=== PATIENT | male | born 1990 | race Caucasian/White ===

== ENCOUNTER 2017-12-02 17:29 | Emergency (ER) | payer SELFPAY ==
[2017-12-02 17:37] VITALS: BP 149/77; PULSE 68; RESP 18; TEMP 36.8; O2SAT 98; BMI 22.8
--- NOTE | 2017-12-02 18:07 | XR_ITS ---
XR chest 2V HISTORY: ITS.REASON: COUGH, SOA ORDERING PHYSICIAN: Joseph Barillas MD PATIENT AGE: 27 years COMPARISON: 09/04/2014 FINDINGS: Unremarkable cardiovascular structures. There is hyperinflation with perihilar bronchial thickening and mild coarsening of the bronchovascular markings consistent with bronchitis/bronchiolitis. No lobar consolidation or collapse. There is mild kyphosis of the thoracic spine unchanged. IMPRESSION: Bronchitis/bronchiolitis
--- NOTE | 2017-12-02 18:10 | HMH.EDGENADL ---
ED Disposition Clinical Impression: Influenza A, Acute bronchitis, Acute sinusitis Disposition: Home, Self-Care Condition on Discharge: Good Instructions: Sinusitis, DI for Influenza -- Adult, DI for Fever (Symptom) -- Adult, DI for Sinusitis, DI for Acute Bronchitis Additional Instructions: Off work until 12/09/17 Additional instructions for UPPER RESPIRATORY INFECTION: See your physician if not improved by Thursday. Return immediately if you have an uncontrollable fever greater than 104 degrees, difficulty breathing or shortness of breath, persistent vomiting, or inability to swallow. Prescriptions: Azithromycin [Z-Marlo 250mg Tab] 250 mg PO UD DOSE PK #6 tab Benzonatate [Tessalon Perle 100mg Cap] 100 mg PO TIDP PRN #20 cap PRN Reason: Cough Ondansetron [Zofran 4mg ODT] 4 mg PO TIDP PRN #10 tab.rapdis PRN Reason: Nausea And Vomiting Oseltamivir Phosphate [Tamiflu 75mg Capsule] 75 mg PO BID #10 capsule Referrals: Castro Breen MD [Primary Care Provider] - - Critical Care Critical Care Time: No Attestation: On 12/02/17, the high probability of a clinically significant, sudden or life threatening deterioration of the following system(s) required my full and direct attention, intervention and personal management. The time I documented below is in addition to time spent performing reported procedures but includes the following listed in this critical care notation. Medical Decision Making - Medical Records Medical records reviewed: Yes: I reviewed the patient's medical records. Vital Signs: 12/02/17 17:37 Temperature 98.2 F Temperature Source Oral Pulse Rate [Right Radial] 68 Respiratory Rate 18 Blood Pressure [Right Arm] 149/77 Blood Pressure Mean [Right Arm] 101 Blood Pressure Source [Right Arm] Automatic Cuff Blood Pressure Position [Right Arm] Sitting 02 Sat by Pulse Oximetry 98 Oxygen Delivery Method Room Air - Lab Data Lab Results 12/02/17 17:40: Influenza Type A Ag Positive A, Influenza Type B Ag Negative Orders (Tests/Meds): ORDERS Category Date Time Status Chest XR 2 view (NOT portable) [XR chest 2V] Stat Exams 12/02/17 18:07 Taken - Ace Inquiry Pt receiving controlled substance: No General Adult HPI - General Chief complaint: Weakness Stated complaint: SOA Mode of Arrival: Ambulatory Limitations: No Limitations Description of Symptoms (Recalled from ER Triage Doc. by RN): soa,weak, cough, congestion, nausea - History of Present Illness HPI narrative: The patient has been sick for 3 weeks. He started out with sinus symptoms with rhinorrhea, sinus pain, productive cough. However, today, he got much worse, suddenly developing feverish and chilled feeling, headache, body aches, nausea. - Related Data Previous Rx's Medication Instructions Recorded Azithromycin [Z-Marlo 250mg Tab] 250 mg PO UD DOSE PK #6 tab 12/02/17 Benzonatate [Tessalon Perle 100mg 100 mg PO TIDP PRN #20 cap 12/02/17 Cap] Ondansetron [Zofran 4mg ODT] 4 mg PO TIDP PRN #10 tab.rapdis 12/02/17 Oseltamivir Phosphate [Tamiflu 75 mg PO BID #10 cap 12/02/17 75mg Capsule] Allergies Allergy/AdvReac Type Severity Reaction Status Date / Time sulfamethoxazole Allergy Unknown Unverified 11/17/17 14:50 [From BACTRIM] trimethoprim [From BACTRIM] Allergy Unknown Unverified 11/17/17 14:50 [facility] History I have reviewed the patient's past medical history: Yes Medical History: Reports:: MRSA Denies:: Cancer, Diabetes Mellitus Type 1, Diabetes Mellitus Type 2 Laterality Cases: Bilateral: Arthroscopy Shoulder Other Surgeries: No: Pacemaker Amputation: No Fractures: No - *Social History Educational Level: Completed High School Smoking Status: Current every day smoker Tobacco Type: cigarettes # Packs/Day (cigarettes): 1 Alcohol Intake: never - Psychiatric History Expresses thoughts of harming self/others: None Suicide Plan Description: No Plan ROS Obtain
== END 2017-12-02 19:45 | disposition home or self-care (01) ==
PROVIDERS: Emergency Provider Emergency Medicine; Family Provider Family Medicine; PCP Family Medicine
DX: J10.1 Influenza due to other identified influenza virus with other respiratory manifestations (principal); J20.9 Acute bronchitis, unspecified; J01.00 Acute maxillary sinusitis, unspecified; Z88.2 Allergy status to sulfonamides; F17.210 Nicotine dependence, cigarettes, uncomplicated
CPT/HCPCS: 71046; 87275; 87276; 99283

== ENCOUNTER 2018-01-24 12:56 | Emergency (ER) | payer MEDICAID, SELFPAY ==
[2018-01-24 13:07] VITALS: BP 108/69; PULSE 111; RESP 20; TEMP 37.1; O2SAT 100; BMI 22.0
--- NOTE | 2018-01-24 13:15 | HMH.EDUTC ---
[facility] [place] Clinical Impression: Periorbital cellulitis of right eye Disposition: Home, Self-Care Condition on Discharge: Good Additional Instructions: RTC if not improving Prescriptions: cephALEXin [Keflex 500mg Cap] 500 mg PO QID 10 Days #40 cap Referrals: Charles Ruffin MD [Primary Care Provider] - Time of Disposition: 13:19 Medical Decision Making - Medical Records Medical records reviewed: Yes: I reviewed the patient's medical records. Vital Signs: 01/24/18 13:07 Temperature 98.8 F Temperature Source Temporal Artery Scan Pulse Rate [Right Brachial] 111 H Respiratory Rate 20 Blood Pressure [Right Arm] 108/69 Blood Pressure Mean [Right Arm] 82 Blood Pressure Source [Right Arm] Automatic Cuff Blood Pressure Position [Right Arm] Sitting 02 Sat by Pulse Oximetry 100 Oxygen Delivery Method Room Air Orders (Tests/Meds): ED MEDICATIONS Discontinued Medications Generic Name Dose Route Start Last Admin Trade Name Freq PRN Reason Stop Dose Admin Ceftriaxone Sodium 1 gm 01/24/18 13:11 Rocephin 1gm Vial IM 01/24/18 13:12 ONCE ONE Lidocaine HCl 0 ml 01/24/18 13:11 Lidocaine 1% 10ml Mdv IM 01/24/18 13:12 ONCE ONE - Ace Inquiry Pt receiving controlled substance: No [facility] [place] - General Stated complaint: r side of face swollen Time Seen by Provider: 01/24/18 13:00 Mode of Arrival: Ambulatory Source of Information: Patient Limitations: No Limitations Description of Symptoms (Recalled from Triage Doc. by RN): ABCESSED TOOTH AND RT SIDE FACIAL SWELLING HEENT Symptoms (Recalled from RN notes): Yes (ABCESSED TOOTH AND RT SIDE FACIAL SWELLING) Resp Symptoms (Recalled from RN notes): No Skin Symptoms (Recalled from RN notes): No MS Symptoms (Recalled from RN notes): No Functional Status (Recalled from RN notes): N/A - History of Present Illness Provider Complaint: Swelling of right side of face X 2 days. No pain. No known injury. No dental issues. No fever. Onset (ago): day(s) (2) Location: face Exacerbating factors: cold therapy Associated symptoms: denies other symptoms Treatments prior to arrival: heat therapy - Related Data Previous Rx's Medication Instructions Recorded Azithromycin [Z-Marlo 250mg Tab] 250 mg PO UD DOSE PK #6 tab 12/02/17 Benzonatate [Tessalon Perle 100mg 100 mg PO TIDP PRN #20 cap 12/02/17 Cap] Ondansetron [Zofran 4mg ODT] 4 mg PO TIDP PRN #10 tab.rapdis 12/02/17 Oseltamivir Phosphate [Tamiflu 75 mg PO BID #10 cap 12/02/17 75mg Capsule] cephALEXin [Keflex 500mg Cap] 500 mg PO QID 10 Days #40 cap 01/24/18 Allergies Allergy/AdvReac Type Severity Reaction Status Date / Time sulfamethoxazole Allergy Unknown Verified 01/24/18 13:11 [From BACTRIM] trimethoprim [From BACTRIM] Allergy Unknown Verified 01/24/18 13:11 - Worker's Comp Is this a Worker's Comp case?: No [facility] History I have reviewed the patient's past medical history: Yes Medical History: Denies:: Cancer, Diabetes Mellitus Type 1, Diabetes Mellitus Type 2, Internal Pacemaker, MRSA Laterality Cases: Bilateral: Arthroscopy Shoulder Other Surgeries: No: Pacemaker Amputation: No Fractures: No - Social History Smoking Status: Current every day smoker Tobacco Type: cigarettes # Packs/Day (cigarettes): 1 Alcohol Intake: never - Psychiatric History Expresses thoughts of harming self/others: None Suicide Plan Description: No Plan ROS Obtained: Yes All systems reviewed & no additional complaints - ENT Ears, Nose, Mouth, and Throat: Reports facial pain Physical Exam - General General appearance: alert, in no apparent distress - Head Head exam: atraumatic, normocephalic, normal inspection - Eye Eye exam: Present: normal appearance, PERRL, EOMI - ENT ENT exam: Present: normal exam, normal oropharynx, mucous membranes moist, TM's normal bilaterally, normal external ear exam - Expanded ENT Exam Nose exam: Present: sinus tend
--- NOTE | 2018-01-24 13:19 | ED_ITS ---
[facility] [place]position Clinical Impression: Periorbital cellulitis of right eye Disposition: Home, Self-Care Condition on Discharge: Good Additional Instructions: RTC if not improving Prescriptions: cephALEXin [Keflex 500mg Cap] 500 mg PO QID 10 Days #40 cap Referrals: Charles Ruffin MD [Primary Care Provider] - Time of Disposition: 13:19 Medical Decision Making - Medical Records Medical records reviewed: Yes: I reviewed the patient's medical records. Vital Signs: 01/24/18 13:07 Temperature 98.8 F Temperature Source Temporal Artery Scan Pulse Rate [Right Brachial] 111 H Respiratory Rate 20 Blood Pressure [Right Arm] 108/69 Blood Pressure Mean [Right Arm] 82 Blood Pressure Source [Right Arm] Automatic Cuff Blood Pressure Position [Right Arm] Sitting 02 Sat by Pulse Oximetry 100 Oxygen Delivery Method Room Air Orders (Tests/Meds): ED MEDICATIONS Discontinued Medications Generic Name Dose Route Start Last Admin Trade Name Freq PRN Reason Stop Dose Admin Ceftriaxone Sodium 1 gm 01/24/18 13:11 Rocephin 1gm Vial IM 01/24/18 13:12 ONCE ONE Lidocaine HCl 0 ml 01/24/18 13:11 Lidocaine 1% 10ml Mdv IM 01/24/18 13:12 ONCE ONE - Ace Inquiry Pt receiving controlled substance: No [facility] [place] HPI - General Stated complaint: r side of face swollen Time Seen by Provider: 01/24/18 13:00 Mode of Arrival: Ambulatory Source of Information: Patient Limitations: No Limitations Description of Symptoms (Recalled from Triage Doc. by RN): ABCESSED TOOTH AND RT SIDE FACIAL SWELLING HEENT Symptoms (Recalled from RN notes): Yes (ABCESSED TOOTH AND RT SIDE FACIAL SWELLING) Resp Symptoms (Recalled from RN notes): No Skin Symptoms (Recalled from RN notes): No MS Symptoms (Recalled from RN notes): No Functional Status (Recalled from RN notes): N/A - History of Present Illness Provider Complaint: Swelling of right side of face X 2 days. No pain. No known injury. No dental issues. No fever. Onset (ago): day(s) (2) Location: face Exacerbating factors: cold therapy Associated symptoms: denies other symptoms Treatments prior to arrival: heat therapy - Related Data Previous Rx's Medication Instructions Recorded Azithromycin [Z-Marlo 250mg Tab] 250 mg PO UD DOSE PK #6 tab 12/02/17 Benzonatate [Tessalon Perle 100mg 100 mg PO TIDP PRN #20 cap 12/02/17 Cap] Ondansetron [Zofran 4mg ODT] 4 mg PO TIDP PRN #10 tab.rapdis 12/02/17 Oseltamivir Phosphate [Tamiflu 75 mg PO BID #10 cap 12/02/17 75mg Capsule] cephALEXin [Keflex 500mg Cap] 500 mg PO QID 10 Days #40 cap 01/24/18 Allergies Allergy/AdvReac Type Severity Reaction Status Date / Time sulfamethoxazole Allergy Unknown Verified 01/24/18 13:11 [From BACTRIM] trimethoprim [From BACTRIM] Allergy Unknown Verified 01/24/18 13:11 - Worker's Comp Is this a Worker's Comp case?: No [facility] History I have reviewed the patient's past medical history: Yes Medical History: Denies:: Cancer, Diabetes Mellitus Type 1, Diabetes Mellitus Type 2, Internal Pacemaker, MRSA Laterality Cases: Bilateral: Arthroscopy Shoulder Other Surgeries: No: Pacemaker Amputation: No Fractures: No - Social Histor
[2018-01-24 13:35] VITALS: BP 108/69; PULSE 111; RESP 20; TEMP 37.1; O2SAT 100
== END 2018-01-24 13:36 | disposition home or self-care (01) ==
PROVIDERS: Emergency Provider Physician Assistant; Family Provider Family Medicine; PCP Internal Medicine Adolescent Medicine
DX: L03.213 Periorbital cellulitis (principal); F17.210 Nicotine dependence, cigarettes, uncomplicated; Z88.2 Allergy status to sulfonamides
CPT/HCPCS: 96372; 99202

== ENCOUNTER 2018-02-01 22:22 | Emergency (ER) | payer MEDICAID, SELFPAY ==
[2018-02-01 22:23] VITALS: BP 141/78; PULSE 80; RESP 18; TEMP 37.1; O2SAT 98; BMI 22.8
--- NOTE | 2018-02-01 22:39 | XR_ITS ---
XR chest 2V HISTORY: Chest pain, smoker ITS.REASON: CP ORDERING PHYSICIAN: Calos Ventura MD PATIENT AGE: 28 years COMPARISON: 12/02/2017 FINDINGS: The cardiomediastinal silhouette and pulmonary vascularity are within normal limits. There remains bronchial thickening with coarsening of the perihilar bronchovascular markings as before. No lobar consolidation or collapse.. No acute bony abnormalities. IMPRESSION: Persistent bronchial thickening with hyperinflation and prominence of perihilar markings. These findings may be seen with bronchitis/smoking related lung disease
--- NOTE | 2018-02-01 22:39 | CT_ITS ---
CT head/brain wo con HISTORY: Syncope, headache, pain, following injury of the head ITS.REASON: HEAD INJURY ORDERING PHYSICIAN: Calos Ventura MD PATIENT AGE: 28 years COMPARISON: None TECHNIQUE: Axial images obtained without contrast. Brain and bone windows reviewed. FINDINGS: No midline shift, mass effect, intracranial hemorrhage, hydrocephalus, or extra-axial fluid collection is evident. The calvarium has an unremarkable appearance. No mastoid effusion. No sinus air-fluid levels.. IMPRESSION: Negative CT head without contrast. No acute finding.
[2018-02-01 22:54] LABS: Microscopic, Urine URINE MICROSCOPIC (MICROSCOPIC)
[2018-02-01 22:57] LABS: Appearance,Urine CLEAR (Clear); Bilirubin,Urine Negative (Negative); Blood, Urine Negative (Negative); Color,Urine YELLOW (Yellow); Glucose,Urine (UA) Negative (Negative); Ketones,Urine TRACE (Negative); Leukocyte Esterase,Urine Negative (Negative); Nitrate,Urine Negative (Negative); PH,Urine 6.5 (5.0-8.5); Protein,Urine Negative (Negative); Specific Gravity, Urine 1.025 (1.005-1.030); Urobilinogen,Urine 0.2 EU/dl (0.2)
[2018-02-01 22:58] LABS: Basophils % 0.8 % (0.1-2.0); Eosinophils # 0.1 K/mm3 (0.0-0.4); Eosinophils % 2.8 % (0.1-12.0); Hematocrit 42.1 % (42.0-52.0); Hemoglobin 14.2 g/dL (14.1-18.0); Lymphocytes # 1.8 K/mm3 (0.7-4.5); Lymphocytes % 37.5 K/mm3 (10-50); Mean Corpuscular HGB Conc 33.7 g/dL (31.8-35.4); Mean Corpuscular Hemoglobin 31.6 pg (27.0-31.2); Mean Corpuscular Volume 93.7 fl (80-94); Mean Platelet Volume 7.8 fl (7.4-10.4); Monocytes # 0.5 K/mm3 (0.1-1.0); Monocytes % 11.4 % (1.7-9.3); Neutrophils # 2.2 K/mm3 (1.8-7.8); Neutrophils % 47.5 % (37.0-80.0); Platelet Count 266 K/mm3 (142-424); Red Blood Count 4.49 M/mm3 (4.60-6.20); Red Cell Distribution Width 12.4 % (11.5-17.5); White Blood Count 4.7 K/mm3 (4.8-10.8)
--- NOTE | 2018-02-01 23:31 | HMH.EDCP ---
ED Disposition Clinical Impression: Atypical chest pain, Vasovagal syncope Acute bronchitis Qualifiers: Bronchitis organism: unspecified organism Qualified Code(s): J20.9 - Acute bronchitis, unspecified Disposition: Home, Self-Care Condition on Discharge: Good Instructions: DI for Cough -- Adult Additional Instructions: fluids and see pcp for follow up Prescriptions: Azithromycin [Zithromax 250mg tab] 250 mg PO DIRECTED #6 tab Referrals: Charles Ruffin MD [Primary Care Provider] - - Critical Care Critical Care Time: No Attestation: On 02/01/18, the high probability of a clinically significant, sudden or life threatening deterioration of the following system(s) required my full and direct attention, intervention and personal management. The time I documented below is in addition to time spent performing reported procedures but includes the following listed in this critical care notation. Medical Decision Making - Medical Records Medical records reviewed: Yes: I reviewed the patient's medical records. Vital Signs: 02/01/18 22:23 02/02/18 00:34 Temperature 98.7 F Temperature Source Oral Pulse Rate [Right Brachial] 80 72 Respiratory Rate 18 22 Blood Pressure [Right Arm] 141/78 Blood Pressure Mean [Right Arm] 99 02 Sat by Pulse Oximetry 98 99 Oxygen Delivery Method Room Air Room Air - Lab Data Lab results reviewed: Yes: I reviewed the patient's lab results. Lab Results 02/01/18 22:42: Urine Opiates Screen Negative, Ur Barbituates Screen Negative, Ur Phencyclidine Scrn Negative, Ur Amphetamines Screen Negative, U Methamphetamines Scrn Negative, U Benzodiazepines Scrn Negative, Urine Cocaine Screen Negative, U Marijuana (THC) Screen Negative 02/01/18 22:52: Urine Color Yellow, Urine Appearance Clear, Urine pH 6.5, Ur Specific [place] 1.025, Urine Protein Negative, Urine Glucose (UA) Negative, Urine Ketones Trace, Urine Blood Negative, Urine Nitrate Negative, Urine Bilirubin Negative, Urine Urobilinogen 0.2, Ur Leukocyte Esterase Negative, Urine RBC 5-10, Urine WBC Occasional, Urine Bacteria 1+, Urine Mucus 2+ 02/01/18 22:52: WBC 4.7 L, RBC 4.49 L, Hgb 14.2, Hct 42.1, MCV 93.7, MCH 31.6 H, MCHC 33.7, RDW 12.4, Plt Count 266, MPV 7.8, Neut % (Auto) 47.5, Lymph % (Auto) 37.5, [place] % (Auto) 11.4 H, Eos % (Auto) 2.8, Baso % (Auto) 0.8, Neut # (Auto) 2.2, Lymph # (Auto) 1.8, [place] # (Auto) 0.5, Eos # (Auto) 0.1, Baso # (Auto) 0.0 02/01/18 22:52: Sodium 135 L, Potassium 3.5, Chloride 102, Carbon Dioxide 25, Anion Gap 11.5, BUN 12, Creatinine 1.00, Estimated Creat Clear 110, Estimated GFR 90, Est GFR ( Amer) 108, Glucose 82, Calcium 8.8, Total Bilirubin 0.4, AST 16, ALT 20, Alkaline Phosphatase 87, Total Creatine Kinase 294, CK-MB (CK-2) 0.6, CK-MB (CK-2) Rel Index 0.2, Troponin I < 0.02, Total Protein 7.7, Albumin 4.2, Globulin 3.5 H, Albumin/Globulin Ratio 1.2, Plasma/Serum Alcohol 0 Result diagrams: 02/01/18 22:52 02/01/18 22:52 Orders (Tests/Meds): ED MEDICATIONS Discontinued Medications Generic Name Dose Route Start Last Admin Trade Name Freq PRN Reason Stop Dose Admin Sodium Chloride 1,000 mls @ 999 mls/hr 02/01/18 23:45 02/01/18 23:43 Sod Chlor 0.9% 1000ml Bag IV 02/02/18 00:45 999 mls/hr .Q1H1M TIFFANY Administration ORDERS Category Date Time Status CT head/brain wo con Stat Cat Scan 02/01/18 22:39 Taken XR chest 2V Stat Exams 02/01/18 22:39 Taken 12-lead EKG Request [ECG Request by /Dante] Stat Y 02/01/18 22:41 Ordered - Radiology Data #1 Image(s): Chest Image Reviewed: Yes I reviewed the patient's radiology image Preliminary Findings: Normal/NAD - CT Data CT Scan: Head Time Received: 00:[address] Reviewed: Yes: I have viewed the radiologist's interpretation Preliminary Findings: Normal/NAD - ECG Data Tracing #1 I reviewed this ECG and interpreted as documented below: Normal Sinus Rhythm: Yes Ischemic changes: non-specific ST-T wa
--- NOTE | 2018-02-01 23:34 | ED_ITS ---
ED Disposition Clinical Impression: Atypical chest pain, Vasovagal syncope Acute bronchitis Qualifiers: Bronchitis organism: unspecified organism Qualified Code(s): J20.9 - Acute bronchitis, unspecified Disposition: Home, Self-Care Condition on Discharge: Good Instructions: DI for Cough -- Adult Additional Instructions: fluids and see pcp for follow up Prescriptions: Azithromycin [Zithromax 250mg tab] 250 mg PO DIRECTED #6 tab Referrals: Charles Ruffin MD [Primary Care Provider] - - Critical Care Critical Care Time: No Attestation: On 02/01/18, the high probability of a clinically significant, sudden or life threatening deterioration of the following system(s) required my full and direct attention, intervention and personal management. The time I documented below is in addition to time spent performing reported procedures but includes the following listed in this critical care notation. Medical Decision Making - Medical Records Medical records reviewed: Yes: I reviewed the patient's medical records. Vital Signs: 02/01/18 22:23 02/02/18 00:34 Temperature 98.7 F Temperature Source Oral Pulse Rate [Right Brachial] 80 72 Respiratory Rate 18 22 Blood Pressure [Right Arm] 141/78 Blood Pressure Mean [Right Arm] 99 02 Sat by Pulse Oximetry 98 99 Oxygen Delivery Method Room Air Room Air - Lab Data Lab results reviewed: Yes: I reviewed the patient's lab results. Lab Results 02/01/18 22:42: Urine Opiates Screen Negative, Ur Barbituates Screen Negative, Ur Phencyclidine Scrn Negative, Ur Amphetamines Screen Negative, U Methamphetamines Scrn Negative, U Benzodiazepines Scrn Negative, Urine Cocaine Screen Negative, U Marijuana (THC) Screen Negative 02/01/18 22:52: Urine Color Yellow, Urine Appearance Clear, Urine pH 6.5, Ur Specific [place] 1.025, Urine Protein Negative, Urine Glucose (UA) Negative, Urine Ketones Trace, Urine Blood Negative, Urine Nitrate Negative, Urine Bilirubin Negative, Urine Urobilinogen 0.2, Ur Leukocyte Esterase Negative, Urine RBC 5-10, Urine WBC Occasional, Urine Bacteria 1+, Urine Mucus 2+ 02/01/18 22:52: WBC 4.7 L, RBC 4.49 L, Hgb 14.2, Hct 42.1, MCV 93.7, MCH 31.6 H , MCHC 33.7, RDW 12.4, Plt Count 266, MPV 7.8, Neut % (Auto) 47.5, Lymph % (Auto ) 37.5, [place] % (Auto) 11.4 H, Eos % (Auto) 2.8, Baso % (Auto) 0.8, Neut # (Auto ) 2.2, Lymph # (Auto) 1.8, [place] # (Auto) 0.5, Eos # (Auto) 0.1, Baso # (Auto) 0.0 02/01/18 22:52: Sodium 135 L, Potassium 3.5, Chloride 102, Carbon Dioxide 25, Anion Gap 11.5, BUN 12, Creatinine 1.00, Estimated Creat Clear 110, Estimated GFR 90, Est GFR ( Amer) 108, Glucose 82, Calcium 8.8, Total Bilirubin 0.4 , AST 16, ALT 20, Alkaline Phosphatase 87, Total Creatine Kinase 294, CK-MB (CK- 2) 0.6, CK-MB (CK-2) Rel Index 0.2, Troponin I < 0.02, Total Protein 7.7, Albumin 4.2, Globulin 3.5 H, Albumin/Globulin Ratio 1.2, Plasma/Serum Alcohol 0 Result diagrams: 02/01/18 22:52 02/01/18 22:52 Orders (Tests/Meds): ED MEDICATIONS Discontinued Medications Generic Name Dose Route Start Last Admin Trade Name Freq PRN Reason Stop Dose Admin Sodium Chloride 1,000 mls @ 999 mls/hr 02/01/18 23:45 02/01/18 23:43 Sod Chlor 0.9% 1000ml Bag IV 02/02/18 00:45 999 mls/hr .Q1H1M TIFFANY Administration ORDERS Category Date Time Status CT head/brain wo con Stat Cat Scan 02/01/18 22:39 Taken XR chest 2V Stat Exams
[2018-02-02 00:12] LABS: Amphetamine/Metha Screen,Urine Negative ng/mL (<1000); Barbiturates Screen,Urine Negative ng/mL (<200); Benzodiazepines Screen,Urine Negative ng/mL (200); Cannabinoid Screen,Urine Negative ng/mL (<50); Cocaine Screen,Urine Negative ng/g (<300); Methadone Screen,Urine Negative ng/mL (<300); Opiate Screen,Urine Negative ng/mL (<300); Phencyclidine Screen,Urine Negative ng/mL (<25)
[2018-02-02 00:16] LABS: Bacteria,Urine 1+ /lpf; Mucus,Urine 2+ /lpf; WBC,Urine Occasional #/hpf (0-3)
[2018-02-02 00:31] LABS: Alanine Aminotransferase 20 U/L (12-78); Albumin Level 4.2 gm/dL (3.4-5.0); Albumin/Globulin Ratio 1.2 (1.1-1.8); Alkaline Phosphatase 87 U/L (46-116); Anion Gap 11.5 mEq/L (5-15); Aspartate Amino Transferase 16 U/L (15-37); Bilirubin,Total 0.4 mg/dL (0.2-1.0); Blood Urea Nitrogen 12 mg/dL (7-18); CKMB Relative Index 0.2 U/L (0-4.0); Calcium 8.8 mg/dL (8.5-10.1); Carbon Dioxide 25 mmol/L (21.0-32.0); Chloride 102 mmol/L (98-107); Creatine Kinase 294 U/L (39-308); Creatine Kinase MB 0.6 mg/ml (0.0-3.6); Creatinine Clearance Estimated 110 mL/min (0-300); Estimated Glomerular Filt Rate 90 ml/min (>60); Ethyl Alcohol 0 mg/dL (0-99); GFR (African American) 108 ML/MIN (>60); Globulin 3.5 gm/dl (1.3-3.2); Glucose 82 mg/dL (74-106); Potassium 3.5 mmoL/L (3.5-5.1); Sodium 135 mmol/L (136-145); Total Protein,Serum 7.7 gm/dL (6.4-8.2); Troponin I < 0.02 ng/ml (0.00-0.06)
[2018-02-02 00:34] VITALS: PULSE 72; RESP 22; O2SAT 99
[2018-02-02 01:35] VITALS: BP 125/75; PULSE 89; RESP 16; TEMP 36.7; O2SAT 97
== END 2018-02-02 01:37 | disposition home or self-care (01) ==
PROVIDERS: Emergency Provider Emergency Medicine; Family Provider Family Medicine; PCP Internal Medicine Adolescent Medicine
DX: J20.9 Acute bronchitis, unspecified (principal); F17.210 Nicotine dependence, cigarettes, uncomplicated; Z88.2 Allergy status to sulfonamides
CPT/HCPCS: 70450; 71046; 80053; 80305; 81001; 82550; 82553; 84484; 85025; 93005; 93041; 96365; 96366; 99284

== ENCOUNTER → 2018-09-23 15:51 | Outpatient (CLI) | payer MEDICAID, SELFPAY ==
--- NOTE | 2018-09-23 15:53 | MR_ITS ---
MR knee RT wo con HISTORY: Right knee pain with instability ITS.REASON: RECURRENT RIGHT KNEE INSTABILITY ORDERING PHYSICIAN: Escobar Norris MD PATIENT AGE: 28 years Comparison: 09/13/2018 TECHNIQUE: Standard multiplanar multiecho sequences are performed without contrast. FINDINGS: The cruciate ligaments are intact. The collateral ligaments also appear intact area patellar tendon and quadriceps tendon has an unremarkable appearance. The menisci are unremarkable. No evidence of meniscal tear. The joint space is well-preserved. The patellar cartilage is preserved. There is a small knee joint effusion. No fracture or bone bruise. There is a dorsal defect within the superior and lateral aspect of the patella. This represents a normal developmental variant. IMPRESSION: 1. No evidence of internal arrangement or other acute finding 2. Small knee joint effusion
== END ==
PROVIDERS: PCP Internal Medicine Adolescent Medicine; Visit Provider Internal Medicine Adolescent Medicine
DX: M23.51 Chronic instability of knee, right knee (principal)
CPT/HCPCS: 73721

== ENCOUNTER 2020-04-02 15:00 | Emergency (ER) | payer OTHER, SELFPAY ==
--- NOTE | 2020-04-02 15:09 | XR_ITS ---
PROCEDURE: XR KNEE RT 3V CLINICAL INDICATION: injury Pain and swelling COMPARISON: [id number] [id number] VIEWS-RT from 12/31/2012 [id number] XR knee RT 3V from 09/13/2018 FINDINGS: No fracture or dislocation. No lytic or blastic change. There is normal mineralization. The joint spaces are well-preserved. No significant degenerative/arthritic changes. No erosive changes evident. Other findings:None. IMPRESSION: No acute findings. Dictated by: Darrel Vazquez MD 04/02/2020 16:23 Electronically signed by Darrel Vazquez MD in [place] 04/02/2020 16:23
[2020-04-02 15:16] VITALS: BP 130/70; PULSE 100; RESP 20; TEMP 36.8; O2SAT 99; BMI 23.6
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
[2020-04-02 16:51] VITALS: BP 130/70; PULSE 100; RESP 20; TEMP 36.8; O2SAT 99
== END 2020-04-02 16:55 | disposition home or self-care (01) ==
PROVIDERS: Emergency Provider Nurse Practitioner Family; PCP Internal Medicine Adolescent Medicine
DX: S83.91XA Sprain of unspecified site of right knee, initial encounter (principal); V28.3XXA Person boarding or alighting a motorcycle injured in noncollision transport accident, initial encounter; Y92.89 Other specified places as the place of occurrence of the external cause; F17.210 Nicotine dependence, cigarettes, uncomplicated; Z90.49 Acquired absence of other specified parts of digestive tract
CPT/HCPCS: 29505; 73562; 99203

== ENCOUNTER 2021-07-01 17:34 | Emergency (ER) | payer OTHER, SELFPAY ==
[2021-07-01 18:38] VITALS: BP 119/69; PULSE 76; RESP 18; TEMP 36.9; O2SAT 100; BMI 20.3
--- NOTE | 2021-07-01 18:48 | HMH.EDUTC ---
[facility] [place] Clinical Impression: Urticaria Disposition: Home, Self-Care Condition on Discharge: Good Instructions: DI for Hives, Methylprednisolone Additional Instructions: Look around and see what you have got into that you may be having a reaction too Over the counter Benadryl may help with itching and rash Over the counter Calamine lotion and oatmeal baths may help with itching and rash Return if needed Straight to ER if any life threatening symptoms Follow up with Family Doctor if needed Prescriptions: methylPREDNISolone [Medrol 4mg tab] 4 mg PO DIRECTED #21 tab Transmission Status: Pending to [id number] Referrals: Charles Ruffin MD [Primary Care Provider] - As needed Time of Disposition: 19:20 Medical Decision Making - Ace Inquiry Pt receiving controlled substance: No Ace was queried for this patient: No Vital Signs: 07/01/21 18:38 07/01/21 19:06 Temperature 98.4 F 98.4 F Temperature Source Oral Pulse Rate 76 Pulse Rate [Right Brachial] 76 Respiratory Rate 18 18 Blood Pressure 119/69 Blood Pressure [Right Arm] 119/69 Blood Pressure Mean [Right Arm] 85 Blood Pressure Source [Right Arm] Manual Cuff/ Palpation Blood Pressure Position [Right Arm] Sitting 02 Sat by Pulse Oximetry 100 Orders (Tests/Meds): ED MEDICATIONS Discontinued Medications Generic Name Dose Route Start Last Admin Trade Name Karol PRN Reason Stop Dose Admin Methylprednisolone Sodium Succinate 125 mg 07/01/21 18:53 07/01/21 19:03 Methylprednisolone Sod Succ 125mg Vial IM 07/01/21 18:54 125 mg ONCE ONE Administration [facility] [place] - General Stated complaint: hives Time Seen by Provider: 07/01/21 18:50 Mode of Arrival: Ambulatory Description of Symptoms (Recalled from Triage Doc. by RN): PT STATES HE NOTICED A RASH/HIVES ON THE BACK OF HIS NECK AND DOWN HIS BACK 2 DAYS AGO. DENIES ANY ITCHING AND STATES HE HAS NOT TRIED ANYTHING NEW. HEENT Symptoms (Recalled from RN notes): No Resp Symptoms (Recalled from RN notes): No Skin Symptoms (Recalled from RN notes): Yes MS Symptoms (Recalled from RN notes): No Functional Status (Recalled from RN notes): WNL - History of Present Illness Provider Complaint: Patient states that does alot of working outside States that he noticed he has a rash on his back and the back of his neck for several days States that he is unsure if he may have got into something that he may be allergic to or not State that it seems to have spread on down his back and itches on and off - Related Data Previous Rx's Medication Instructions Recorded methylPREDNISolone [Medrol 4mg 4 mg PO DIRECTED #21 tab 07/01/21 tab] Allergies Allergy/AdvReac Type Severity Reaction Status Date / Time No Known Allergies Allergy Verified 02/04/19 11:20 - Worker's Comp Is this a Worker's Comp case?: No Is this an [employer] Worker's Comp?: No Is this a [employer] Worker's Comp?: No [facility] History - Hepatitis A Screen Drug use history?: No High risk sexual behaviors?: No History of sexually transmitted infection?: No Currently employed?: No Childcare worker?: No Do you have indoor plumbing?: Yes Do you have electricity?: Yes Attestation statement:: This patient has been screened for Hepatitis A risk factors. I have reviewed the patient's past medical history: Yes - Social History Smoking Status: Current every day smoker Tobacco Type: cigarettes, e-cigarettes # Packs/Day (cigarettes): 1 Alcohol Intake: never Occupational Status: employed Household Members: family ROS Obtained: Yes All systems reviewed & no additional complaints, Yes Systems reviewed as appropriate & no additional complaints - Constitutional Constitutional: Reports system reviewed and no additional complaints, except as docu - ENT Ears, Nose, Mouth, and Throat: Reports system reviewed and no additional complaints, except as docu - Cardiovascular Cardiovascular: Reports system re
[2021-07-01 19:06] VITALS: BP 119/69; PULSE 76; RESP 18; TEMP 36.9; O2SAT 100
== END 2021-07-01 19:31 | disposition home or self-care (01) ==
PROVIDERS: Emergency Provider Nurse Practitioner; PCP Internal Medicine Adolescent Medicine
DX: L50.9 Urticaria, unspecified (principal)
CPT/HCPCS: 96372; 99202; G0463

== ENCOUNTER 2022-05-21 11:07 | Emergency (ER) | payer OTHER, SELFPAY ==
[2022-05-21 11:21] VITALS: BP 136/78; PULSE 99; RESP 17; TEMP 36.9; O2SAT 100; BMI 22.1
--- NOTE | 2022-05-21 11:24 | HMH.EDUTC ---
[facility] [place] Impression: Cutaneous abscess of right shoulder Disposition: Home, Self-Care Condition on Discharge: Good Instructions: Boil, DI for Skin Abscess Additional Instructions: Keep the affected area clean and dry. Follow up with your regular doctor. Take the antibiotics as directed and apply the topical antibiotics as directed. Apply warm wet compresses to the affected area three or four times per day. GO TO THE ER FOR ANY WORSENING SYMPTOMS Prescriptions: Mupirocin [Bactroban 2% Ointment 22gm tube] 1 applicatio TP TID 7 Days #1 gm Transmission Status: Pending to [facility] cephALEXin [cephALEXin 500mg capsule] 500 mg PO Q6H 10 Days #40 cap Transmission Status: Pending to [facility] Referrals: Charles Ruffin MD [Primary Care Provider] - Time of Disposition: 11:38 Medical Decision Making - Medical Records Medical records reviewed: No: I reviewed the patient's medical records. - Ace Inquiry Pt receiving controlled substance: No Vital Signs: 05/21/22 11:21 05/21/22 11:45 Temperature 98.5 F 98.5 F Temperature Source Oral Pulse Rate 99 H Pulse Rate [Left Radial] 99 H Respiratory Rate 17 17 Blood Pressure 136/78 Blood Pressure [Right Arm] 136/78 Blood Pressure Mean [Right Arm] 97 02 Sat by Pulse Oximetry 100 [facility] [place] - General Stated complaint: bump on neck Time Seen by Provider: 05/21/22 11:24 - History of Present Illness Provider Complaint: He states that he has had a sore bump on the top of his right shoulder for the past 4 days. He has had a lump in this area for the past 1 year, but it has only now started to get red and painful. - Related Data Previous Rx's Medication Instructions Recorded Ibuprofen [Ibuprofen 600mg 600 mg PO Q6HP PRN #30 tab 04/02/20 Tablet] Mupirocin [Bactroban 2% Ointment 1 applicatio TP TID 7 Days #1 gm 05/21/22 22gm tube] cephALEXin [cephALEXin 500mg 500 mg PO Q6H 10 Days #40 cap 05/21/22 capsule] Allergies Allergy/AdvReac Type Severity Reaction Status Date / Time sulfamethoxazole Allergy Unknown Verified 05/21/22 11:35 [From BACTRIM] trimethoprim [From BACTRIM] Allergy Unknown Verified 05/21/22 11:35 [facility] History - Hepatitis A Screen Attestation statement:: This patient has been screened for Hepatitis A risk factors. I have reviewed the patient's past medical history: Yes Medical History: Denies:: Cancer, Diabetes Mellitus Type 1, Diabetes Mellitus Type 2, Hypertension, Internal Pacemaker, MRSA Laterality Cases: Right: Arthroscopy Shoulder, Bilateral: Myringotomy (Ear Tubes), Tonsillectomy Other Surgeries: Yes: Appendectomy, Cardiac Surgery (pt not sure what kind). No: Pacemaker Amputation: No Fractures: Yes - Social History Smoking Status: Current every day smoker Tobacco Type: cigarettes # Packs/Day (cigarettes): 1 Alcohol Intake: never Occupational Status: other ROS Obtained: Yes All systems reviewed & no additional complaints - Constitutional Constitutional: Reports as per HPI - Eyes Eyes: Denies eye discharge - ENT Ears, Nose, Mouth, and Throat: Reports as per HPI - Cardiovascular Cardiovascular: Denies chest pain - Respiratory Respiratory: Denies chest congestion, Denies cough Physical Exam - General General appearance: alert, in no apparent distress - Head Head exam: atraumatic, normocephalic, normal inspection - Eye Eye exam: Present: normal appearance, PERRL, EOMI - ENT ENT exam: Present: normal exam, normal oropharynx, mucous membranes moist, TM's normal bilaterally, normal external ear exam - Neck Neck exam: Present: normal inspection, full ROM, trachea midline. Absent: meningismus, lymphadenopathy - Chest Chest inspection: Present: normal inspection, symmetric chest wall rise. Absent: tenderness - Respiratory Respiratory exam: Present: normal lung sounds bilaterally. Absent: resp
[2022-05-21 11:45] VITALS: BP 136/78; PULSE 99; RESP 17; TEMP 36.9
== END 2022-05-21 11:46 | disposition home or self-care (01) ==
PROVIDERS: Emergency Provider Nurse Practitioner Family; PCP Internal Medicine Adolescent Medicine
DX: L02.413 Cutaneous abscess of right upper limb (principal)
CPT/HCPCS: 99212; G0463

== ENCOUNTER 2022-10-31 12:39 | Outpatient (RCR) | payer OTHER, SELFPAY | END 2022-10-31 12:45 | disposition home or self-care (01) | LOC: PT 12:39 | PROVIDERS: PCP Internal Medicine Adolescent Medicine; Visit Provider Nurse Practitioner Family | DX: M25.511 Pain in right shoulder (principal); G89.29 Other chronic pain | CPT/HCPCS: 97163 ==

== ENCOUNTER → 2022-11-05 11:00 | Outpatient (CLI) | payer OTHER, SELFPAY ==
--- NOTE | 2022-11-05 11:12 | XR_ITS ---
FINAL REPORT CLINICAL HISTORY: shoulder pain FINDINGS: RIGHT SHOULDER Three views demonstrate no acute fracture or dislocation. The joint spaces appear normal. The visualized bony structures are well aligned. No soft tissue abnormality is seen. IMPRESSION: No acute process. Reviewed, Interpreted and Dictated by Dionicio Kamara III, MD Transcribed by Maryam Cassidy Authenticated and [facility]
== END ==
PROVIDERS: PCP Nurse Practitioner Family; Visit Provider Orthopaedic Surgery
DX: M25.511 Pain in right shoulder (principal)
CPT/HCPCS: 73030

== ENCOUNTER → 2022-11-11 14:54 | Outpatient (CLI) | payer OTHER, SELFPAY ==
--- NOTE | 2022-11-11 14:58 | MR_ITS ---
FINAL REPORT CLINICAL HISTORY: shoulder pain. 2 prior shoulder surgeries. weakness in arm. limited rom. no injury or trauma. FINDINGS: Multiplanar MR imaging of the right shoulder was performed without contrast. The tendons of the rotator cuff are intact without evidence of rotator cuff tear. The a.c. joint is intact. There is edema in the a.c. joint capsule. A small amount of fluid is present in the subacromial/subdeltoid bursa. Postoperative changes are seen in the superior glenoid and superior labrum. The superior labrum has an abnormal morphology of uncertain significance. This may represent postoperative change, but a recurrent or residual tear is not excluded. The long head of the biceps tendon is intact. No significant glenohumeral joint effusion is seen. There is no evidence of fracture or dislocation. Several subchondral cysts are seen in the superior humeral head. The musculature is intact. An 8 mm fluid collection is seen at the anterior aspect of the shoulder which may represent a ganglion cyst. IMPRESSION: No evidence of rotator cuff tear. Abnormal superior labrum, much of which likely represents postoperative change but a recurrent or residual SLAP tear is not excluded. If indicated, a follow-up study with intra-articular gadolinium may be helpful. Edema in the a.c. joint capsule may represent inflammation. 8 mm fluid collection at the anterior superior shoulder, favor ganglion cyst. Authenticated and [facility]
== END ==
PROVIDERS: PCP Nurse Practitioner Family; Visit Provider Orthopaedic Surgery
DX: M75.101 Unspecified rotator cuff tear or rupture of right shoulder, not specified as traumatic (principal)
CPT/HCPCS: 73221

== ENCOUNTER 2023-04-29 11:42 | Emergency (ER) | payer OTHER, SELFPAY ==
[2023-04-29 11:43] VITALS: BP 139/81; PULSE 94; RESP 16; TEMP 36.7; O2SAT 98; BMI 25.8
[2023-04-29 11:48] VITALS: BP 137/80; PULSE 95; O2SAT 98
--- NOTE | 2023-04-29 11:48 | ECG_ITS ---
APPROVED REPORT Exam: Resting ECG HR:99 bpm ECG Measurements Heart Rate 99 AXES IL 131 P 67 QRSd 95 QRS 69 QT 338 T 45 QTc 395 Conclusion SINUS RHYTHM NORMAL ECG UNCONFIRMED REPORT Electronically signed by : Charles Ruffin MD 04/29/2023 17:32:50
[2023-04-29 12:08] VITALS: BMI 25.8
--- NOTE | 2023-04-29 12:10 | XR_ITS ---
FINAL REPORT CLINICAL HISTORY: Palpitations COMPARISON: 02/01/2018 FINDINGS: The heart size is normal. The mediastinum is normal. There is no focal infiltrate or edema. There are no pleural effusions. There is no pneumothorax. There is no osseous abnormality. IMPRESSION: No acute cardiopulmonary process Reviewed, Interpreted and Dictated by Mo Bradshaw MD Transcribed by Katiana Bruce Authenticated and [facility]
--- NOTE | 2023-04-29 12:10 | HMH.EDGENADL ---
Discharge Plan Disposition Patient Disposition: Home, Self-Care Prescriptions Prescriptions: No Action ibuprofen 600 MG tablet 600 mg PO Q6HP PRN (Reason: Mild Pain) Qty: 30 0RF methylprednisolone 4 MG tablet 4 mg PO DIRECTED Qty: 21 0RF Rx Instructions: Take as directed on package instructions mupirocin 22 GM ointment 1 applicatio TP TID 7 Days Qty: 1 0RF cephalexin 500 MG capsule 500 mg PO Q6H 10 Days Qty: 40 0RF Referrals Follow up/Referrals: Charles Ruffin MD [Primary Care Provider] - See instructions Activity Restrictions/Add. Instructions Additional Instructions/Restrictions: Follow-up with Dr. Gomes at 2 PM as instructed. Clinical Impressions Clinical Impression: Palpitations, Anxiety Discharge ED Provider: Shu Ho General Adult HPI General Chief complaint: Arrhythmia/Palpitations Stated complaint: Irregular heartbeat Time Seen by Provider: 04/29/23 12:10 Mode of Arrival: Ambulatory Source of Information: Patient Limitations: No Limitations Description of Symptoms (Recalled from ER Triage Doc. by RN): 33 yo M presents to ED with c/o high heart rate. pt states that he was at work this morning and began to feel his heart rate. pt states that he had a similar issue this past . pt states that he does have hx of anxiety. pt states that when he checked it at work via palpation and it was 112. History of Present Illness HPI narrative: Patient is a 33-year-old male presenting with palpitations. States this is intermittently been going on his whole life was followed by pediatric cardiology and had an ablation at [facility] when he was 11 years old also was on digoxin for short period of time but over the last several years he has had no significant symptoms associated with this. He states that he feels palpitations and his heart racing and fluttering felt a little bit dizzy while at work and also had significant anxiety and stress associate with this. Symptoms lasted a short period time are completely resolved at this point. He has follow-up with Dr. Gomes on Thursday of next week. He is worn numerous Holter monitor she states in the past for similar symptoms. Denies any other symptoms including drug use fevers chills or any other changes in medications recently. There is been no chest pain or shortness of breath associated with this. Related Data Previous Rx's Medication Instructions Recorded ibuprofen 600 mg tablet 600 mg PO Q6HP PRN Mild Pain #30 04/02/20 tabs methylprednisolone 4 mg tablet 4 mg PO DIRECTED #21 tabs 07/01/21 cephalexin 500 mg capsule 500 mg PO Q6H 10 days #40 caps 05/21/22 mupirocin 2 % topical ointment 1 applicatio topical TID 7 days #1 05/21/22 g Allergies Allergy/AdvReac Type Severity Reaction Status Date / Time sulfamethoxazole Allergy Unknown Verified 12/19/22 11:59 [From BACTRIM] trimethoprim [From BACTRIM] Allergy Unknown Verified 12/19/22 11:59 PFSH PFSH Disclaimer: The information contained in this section may have been updated after the patient was seen, as this information can be updated by other users. Social History Smoking Status: Current every day smoker tobacco type: cigarettes packs per day: 1 and e-cigarettes alcohol intake: never current occupational status: employed and other Travel in the last 8 weeks: None household members: family caffeine: Yes ROS Obtained: Yes All systems reviewed & no additional complaints except as documented Physical Exam General General appearance: alert Respiratory Respiratory exam: Present normal lung sounds bilaterally and respiratory distress Cardiovascular Cardiovascular exam: Present regular rate; Absent tachycardia Neurological Exam Neurological exam: Present alert and oriented X3 Medical Decision Making Ace Inquiry Pt receiving controlled substance: No Vital Signs:
[2023-04-29 12:17] LABS: Basophils % 0.7 % (0.1-2.0); Eosinophils # 0.1 K/mm3 (0.0-0.4); Eosinophils % 1.2 % (0.1-12.0); Hematocrit 40.6 % (42.0-52.0); Hemoglobin 13.6 g/dL (14.1-18.0); Lymphocytes # 1.5 K/mm3 (0.7-4.5); Lymphocytes % 32.9 % (10-50); Mean Corpuscular HGB Conc 33.5 g/dL (31.8-35.4); Mean Corpuscular Hemoglobin 29.2 pg (27.0-31.2); Mean Corpuscular Volume 87.2 fl (80-94); Mean Platelet Volume 7.5 fl (7.4-10.4); Monocytes # 0.3 K/mm3 (0.1-1.0); Monocytes % 5.6 % (1.7-9.3); Neutrophils # 2.6 K/mm3 (1.8-7.8); Neutrophils % 59.6 % (37.0-80.0); Platelet Count 313 K/mm3 (142-424); Red Blood Count 4.66 M/mm3 (4.60-6.20); Red Cell Distribution Width 12.6 % (11.5-17.5); White Blood Count 4.4 K/mm3 (4.8-10.8)
[2023-04-29 12:18] LABS: Chloride 102 mmol/L (98-107); Sodium 140 mmol/L (136-145)
[2023-04-29 12:19] LABS: Potassium 3.9 mmoL/L (3.5-5.1)
[2023-04-29 12:21] LABS: Blood Urea Nitrogen 9 mg/dl (9-20); Creatinine Clearance Estimated 129 mL/min (50-200); Estimated Glomerular Filt Rate 98 ml/min (>60); GFR (African American) 118 ML/MIN (>60)
[2023-04-29 12:22] LABS: Anion Gap 14.9 mEq/L (5-15); Calcium 9.4 mg/dl (8.4-10.2); Carbon Dioxide 27 mmol/L (22.0-30.0); Glucose 95 mg/dl (74-100)
[2023-04-29 12:30] VITALS: BP 122/87; PULSE 85; O2SAT 99
[2023-04-29 12:39] LABS: Troponin I < 0.01 ng/ml (0.00-0.034)
[2023-04-29 13:00] VITALS: BP 119/79; PULSE 88; O2SAT 100
[2023-04-29 14:27] VITALS: BP 119/79; PULSE 88; RESP 16; TEMP 36.7
== END 2023-04-29 14:29 | disposition home or self-care (01) ==
PROVIDERS: Emergency Provider Student in an Organized Health Care Education/Training Program; PCP Internal Medicine Adolescent Medicine
DX: R00.2 Palpitations (principal); R42 Dizziness and giddiness; F41.9 Anxiety disorder, unspecified; F17.290 Nicotine dependence, other tobacco product, uncomplicated; F17.210 Nicotine dependence, cigarettes, uncomplicated
CPT/HCPCS: 71045; 80048; 83735; 84443; 84484; 85025; 93005; 96361; 96374; 96375; 99285

== ENCOUNTER → 2023-04-29 14:52 | Outpatient (CLI) | payer OTHER, SELFPAY | PROVIDERS: PCP Internal Medicine Adolescent Medicine; Visit Provider Physician Assistant | DX: R00.2 Palpitations (principal); Z98.890 Other specified postprocedural states | CPT/HCPCS: 93270 ==

== ENCOUNTER → 2023-05-13 10:20 | Outpatient (CLI) | payer OTHER, SELFPAY | PROVIDERS: PCP Internal Medicine Adolescent Medicine; Visit Provider Physician Assistant | DX: R00.2 Palpitations (principal); Z98.890 Other specified postprocedural states | CPT/HCPCS: 93306 ==

== ENCOUNTER 2023-08-05 15:49 | Emergency (ER) | payer OTHER, SELFPAY ==
[2023-08-05 15:50] VITALS: BP 118/75; PULSE 96; RESP 17; TEMP 36.8; O2SAT 99; BMI 25.8
[2023-08-05 15:58] VITALS: BP 118/75; PULSE 96; O2SAT 98
[2023-08-05 16:00] VITALS: BP 122/76; PULSE 99; O2SAT 98
[2023-08-05 16:31] VITALS: BP 126/91; PULSE 93; O2SAT 99
--- NOTE | 2023-08-05 16:31 | XR_ITS ---
PROCEDURE INFORMATION: Exam: XR Left Femur Exam date and time: 08/05/2023 4:36 PM Age: 33 years old Clinical indication: Injury or trauma; Other: Softball; Blunt trauma; Knee; Left; Additional info: Softball injury TECHNIQUE: Imaging protocol: Radiologic exam of the left femur. Views: 2 views. COMPARISON: CR XR KNEE LT 3V 08/05/2023 4:34 PM FINDINGS: Bones/joints: Unremarkable. No acute fracture. Soft tissues: Unremarkable. IMPRESSION: No acute findings.
--- NOTE | 2023-08-05 16:31 | XR_ITS ---
PROCEDURE INFORMATION: Exam: XR Left Knee Exam date and time: 08/05/2023 4:34 PM Age: 33 years old Clinical indication: Injury or trauma; Other: Softball; Blunt trauma; Knee; Left; Additional info: Soft ball injury TECHNIQUE: Imaging protocol: Radiologic exam of the left knee. Views: 3 views. COMPARISON: No relevant prior studies available. FINDINGS: Bones/joints: Normal. Soft tissues: Normal. IMPRESSION: No acute findings.
--- NOTE | 2023-08-05 16:33 | PC.NURSE ---
PT TO XR
--- NOTE | 2023-08-05 16:33 | HMH.EDGENADL ---
Discharge Plan Disposition Patient Disposition: Home, Self-Care Prescriptions Prescriptions: New ibuprofen 800 mg tablet 800 mg PO TID PRN (Reason: pain) 7 Days Qty: 20 0RF cyclobenzaprine 5 mg tablet 5 mg PO TID PRN (Reason: muscle spasm) 5 Days Qty: 15 0RF No Action bisoprolol fumarate 5 mg tablet 5 mg PO QDAY PRN hydroxyzine pamoate 25 mg capsule 25 mg PO HS PRN Referrals Follow up/Referrals: Varghese Duran DO [Staff Physician] - See instructions (syspected MCL and/or medial meniscal injury, follow up for outpatient MRI ) Provider,Referral, [Primary Care Provider] - See instructions Clinical Impressions Clinical Impression: Strain of left knee Discharge ED Provider: Shu Ho [facility] Adult HPI General Chief complaint: Extremity Injury, Lower Stated complaint: AO 08/04, left leg pain Time Seen by Provider: 08/05/23 16:18 Mode of Arrival: Wheelchair Source of Information: Patient Limitations: No Limitations Description of Symptoms (Recalled from ER Triage Doc. by RN): PT PLAYING SOFTBALL LAST NIGHT, SLIDE AND LEG WENT UNDER PT. C/O LEFT LEG PAIN History of Present Illness HPI narrative: 33-year-old male here with left knee injury. States he was playing softball last night slid into second base and his left knee was flexed underneath him he had some significant pain at that time but it slowly worsened throughout the day today. States is on the medial aspect of his left knee and his left medial thigh. He also has a skin abrasion to the anterior left knee that they have been putting Neosporin on. No injuries elsewhere. Related Data Home Medications Medication Instructions Recorded Confirmed bisoprolol fumarate 5 mg tablet 5 mg PO QDAY PRN 05/21/23 hydroxyzine pamoate 25 mg capsule 25 mg PO HS PRN 05/21/23 05/21/23 Previous Rx's Medication Instructions Recorded cyclobenzaprine 5 mg tablet 5 mg PO TID PRN muscle spasm 5 08/05/23 days #15 tabs ibuprofen 800 mg tablet 800 mg PO TID PRN pain 7 days #20 08/05/23 tabs Allergies Allergy/AdvReac Type Severity Reaction Status Date / Time sulfamethoxazole Allergy Unknown Verified 05/21/23 14:32 [From BACTRIM] trimethoprim [From BACTRIM] Allergy Unknown Verified 05/21/23 14:32 [facility] Disclaimer: The information contained in this section may have been updated after the patient was seen, as this information can be updated by other users. Surgical History History of prior ablation treatment Social History Smoking Status: Current every day smoker tobacco type: cigarettes packs per day: 1 and e-cigarettes alcohol intake: never current occupational status: employed and other Travel in the last 8 weeks: None household members: family caffeine: Yes ROS Obtained: Yes All systems reviewed & no additional complaints except as documented Physical Exam General General appearance: alert Respiratory Respiratory exam: Present normal lung sounds bilaterally Cardiovascular Cardiovascular exam: Present regular rate; Absent tachycardia Extremities Exam Extremities exam: Present other (Anterior posterior drawer normal medial and lateral stress test normal medial Paige's abnormal there is medial joint space and joint line tenderness no significant joint effusion there is also a 4 x 4 centimeter area of superficial skin abrasion on the left anterior tibia) Neurological Exam Neurological exam: Present alert and oriented X3 Medical Decision Making Ace Inquiry Pt receiving controlled substance: No Vital Signs: 08/05/23 15:50 08/05/23 15:58 08/05/23 16:00 Temperature 98.2 F Temperature Source Oral Pulse Rate 96 H 99 H Pulse Rate [Radial] 96 H Respiratory Rate 17 Blood Pressure 118/75 122/76 Blood Pressure [Right Arm] 118/75 Blood Pressure Mean 85 83 Blood Pressure Mean [Right
--- NOTE | 2023-08-05 16:38 | PC.NURSE ---
PT RETURNED FROM XR
--- NOTE | 2023-08-05 16:58 | PC.NURSE ---
DR QUIROGA AT BEDSIDE, POC UPDATED
--- NOTE | 2023-08-05 16:58 | PC.NURSE ---
KERVIN WRAP TO LEFT KNEE AND CRUTCHES PROVIDED. PT USES CORRECTLY
[2023-08-05 17:00] VITALS: BP 137/83; PULSE 96; RESP 17; TEMP 36.7; O2SAT 98
== END 2023-08-05 17:00 | disposition home or self-care (01) ==
PROVIDERS: Emergency Provider Student in an Organized Health Care Education/Training Program
DX: S83.92XA Sprain of unspecified site of left knee, initial encounter (principal); X50.0XXA Overexertion from strenuous movement or load, initial encounter; Y93.69 Activity, other involving other sports and athletics played as a team or group; F17.210 Nicotine dependence, cigarettes, uncomplicated
CPT/HCPCS: 73552; 73562; 99283

== ENCOUNTER → 2023-10-26 10:22 | Outpatient (CLI) | payer OTHER, SELFPAY ==
--- NOTE | 2023-10-26 10:23 | MR_ITS ---
FINAL REPORT TECHNIQUE: Multiplanar MR without contrast CLINICAL HISTORY: LT LATERAL KNEE PAIN FINDINGS: Articular cartilage: No focal defect Marrow signal: Unremarkable Joint fluid: Physiologic Menisci: Normal morphology without tear Ligaments: Collateral and cruciate ligaments intact IMPRESSION: Unremarkable exam Reviewed, Interpreted and Dictated by Maximo Whitmore MD Transcribed by Giulia Moscoso Authenticated and [facility]
== END ==
PROVIDERS: PCP Internal Medicine Adolescent Medicine; Visit Provider Orthopaedic Surgery
DX: S86.912A Strain of unspecified muscle(s) and tendon(s) at lower leg level, left leg, initial encounter (principal)
CPT/HCPCS: 73721

== ENCOUNTER 2023-12-23 14:14 | Outpatient (CLI) | payer OTHER, SELFPAY ==
[2023-12-24 08:24] LABS: Mumps Abs, IgG 19.8 AU/mL (Immune >10.9); Rubella Antibodies, IgG 1.04 index (Immune >0.99)
== END 2023-12-23 23:59 ==
LOC: LAB 14:16
PROVIDERS: PCP Internal Medicine Adolescent Medicine; Visit Provider Internal Medicine Adolescent Medicine
DX: Z02.1 Encounter for pre-employment examination (principal)
CPT/HCPCS: 36415; 86735; 86762; 86765

== ENCOUNTER 2024-03-02 12:05 | Emergency (ER) | payer OTHER, SELFPAY ==
[2024-03-02 12:15] VITALS: BP 116/62; PULSE 78; RESP 17; TEMP 37.1; O2SAT 97; BMI 25.9
--- NOTE | 2024-03-02 12:42 | EXP.UTC ---
Discharge Plan Disposition Patient Disposition: Home, Self-Care Condition: Good Prescriptions Prescriptions: New ondansetron 4 mg tablet,disintegrating 4 mg PO Q8H PRN (Reason: nausea and vomiting) Qty: 10 0RF No Action propranolol 10 mg Tablet 5 mg PO BID Referrals Follow up/Referrals: Charles Ruffin MD [Primary Care Provider] - See instructions Activity Restrictions/Add. Instructions Additional Instructions/Restrictions: Drink extra fluids with and between meals. If you have difficulty drinking, try very small amounts of water or suck on ice chips. ? Avoid fruit juices, as these do not replace minerals and can actually increase diarrhea. ? Children and adults can use sports drinks to replenish electrolytes. Younger children and infants should use products formulated for children, like oral rehydration solutions. ? Eat food in small amounts and let your stomach recover. ? Get lots of rest. You may feel tired or weak. ? No greasy or fried foods for the next 24-48 hours BRAT diet Bananas Rice Apples and [place] ? Make sure to drink plenty of liquids ? Return if needed ? Straight to ER if any life threatening symptoms ? Zofran as prescribed ? Follow up with family doctor in the next 48-72 hours if no improvement or any worsening of symptoms Clinical Impressions Clinical Impression: Nausea, vomiting and diarrhea Instructions Patient Instructions: DI for Vomiting -- Adult, Diarrhea Discharge ED Provider: Alisson Mello [facility] General Stated complaint: v/d Mode of Arrival: Ambulatory Source of Information: Patient Limitations: No Limitations Time Seen by Provider: 03/02/24 12:42 Description of Symptoms (Recalled from Triage Doc. by RN): PATIENT C/O VOMITING AND DIARRHEA THAT STARTED YESTERDAY HEENT Symptoms (Recalled from RN notes): No Resp Symptoms (Recalled from RN notes): No Skin Symptoms (Recalled from RN notes): No MS Symptoms (Recalled from RN notes): No Functional Status (Recalled from RN notes): WNL History of Present Illness Provider Complaint: Patient states that several of his kids has had the stomach bug and then yesterday he started with vomiting and diarrhea thinks he may have it now too Related Data Home Medications Medication Instructions Recorded Confirmed propranolol 10 mg tablet 5 mg PO BID 03/02/24 03/02/24 Previous Rx's Medication Instructions Recorded ondansetron 4 mg disintegrating 4 mg PO Q8H PRN nausea and 03/02/24 tablet vomiting #10 tabs Allergies Allergy/AdvReac Type Severity Reaction Status Date / Time sulfamethoxazole Allergy Unknown Verified 10/01/23 09:59 [From BACTRIM] trimethoprim [From BACTRIM] Allergy Unknown Verified 10/01/23 09:59 Worker's Comp Is this a Worker's Comp case?: No [facility] Disclaimer: The information contained in this section may have been updated after the patient was seen, as this information can be updated by other users. Surgical History History of prior ablation treatment Social History Smoking Status: Current every day smoker tobacco type: cigarettes packs per day: 1 and e-cigarettes alcohol intake: never current occupational status: employed and other Travel in the last 8 weeks: None household members: family caffeine: Yes ROS Obtained: Yes All systems reviewed & no additional complaints except as documented and Yes Systems reviewed as appropriate & no additional complaints except as documented Constitutional Constitutional: Reports system reviewed and no additional complaints, except as documented and Reports as per HPI ENT Ears, Nose, Mouth, and Throat: Reports system reviewed and no additional complaints, except as documented and Reports as per HPI Cardiovascular Cardiovascular: Reports system reviewed and no additional complaints, except as documented and Reports as per HPI Respiratory Respiratory: Reports system reviewed and no additional complaints, except as documented and Reports as per HPI Gastrointestinal Gastrointestingal: Reports system reviewed and no additional complaints, except as documented, as per HPI, diarrhea, nausea and vomiting; Denies abdominal pain or cramping Physical Exam General General appearance: alert and in no apparent distress ENT ENT exam: Present mucous membranes moist Respiratory Respiratory exam: Present normal lung sounds bilaterally; Absent respiratory distress or wheezes Cardiovascular Cardiovascular exam: Present regular rate, normal rhythm and normal heart sounds Abdominal Exam Abdominal exam: Present soft and normal bowel sounds; Absent distention or tenderness Neurological Exam Neurological exam: Present alert, oriented X3 and normal gait Medical Decision Making Ace Inquiry Pt receiving controlled substance: No Ace was queried for this patient: No Vital Signs: 03/02/24 12:15 Temperature 98.7 F Temperature Source Oral Pulse Rate [Left Brachial] 78 Respiratory Rate 17 Blood Pressure [Left Arm] 116/62 Blood Pressure Mean [Left Arm] 80 Blood Pressure Source [Left Arm] Automatic Cuff Blood Pressure Position [Left Arm] Sitting 02 Sat by Pulse Oximetry 97 Oxygen Delivery Method Room Air
[2024-03-02 12:56] VITALS: BP 116/62; PULSE 78; RESP 17; TEMP 37.1; O2SAT 97
== END 2024-03-02 13:00 | disposition home or self-care (01) ==
PROVIDERS: Emergency Provider Nurse Practitioner; PCP Internal Medicine Adolescent Medicine
DX: R11.2 Nausea with vomiting, unspecified (principal); R19.7 Diarrhea, unspecified; F17.210 Nicotine dependence, cigarettes, uncomplicated
CPT/HCPCS: 99212; 99214; G0463

== ENCOUNTER 2025-03-06 11:40 | Outpatient (CLI) | payer OTHER, SELFPAY ==
[2025-03-06 15:39] LABS: Coronavirus 19, PCR Not Detected (NotDetected); Human Rhinovirus Not Detected (NotDetected); Influenza A, PCR Not Detected (NotDetected); Influenza B, PCR Not Detected (NotDetected); Respiratory Syncytial Virus Not Detected (NotDetected)
== END 2025-03-06 23:59 | disposition home or self-care (01) ==
LOC: LAB.DROPOF 03-07 15:03
PROVIDERS: PCP Nurse Practitioner; Visit Provider Nurse Practitioner
DX: R52 Pain, unspecified (principal); J02.9 Acute pharyngitis, unspecified; R68.83 Chills (without fever)
CPT/HCPCS: 87631